=== PATIENT | male | born 1970 | race Caucasian/White ===

== ENCOUNTER 2019-05-25 11:35 | Day surgery (SDC) | payer BC ==
[~2019-05-25 11:35] MED LIST: LIDOCAINE HCL 1% MPF 30 SOL ONE; PROPOFOL 500 MG/50 ML EMU IV ONE
[2019-05-25 13:46] VITALS: O2SAT 99
[2019-05-25 13:57] VITALS: BP 142/86; PULSE 58; RESP 20; TEMP 97.4
== END 2019-05-25 14:21 | disposition home or self-care (01) ==
LOC: SURG 11:35
PROVIDERS: ATTEND Surgery
DX: Z12.11 Encounter for screening for malignant neoplasm of colon (principal); K57.32 Diverticulitis of large intestine without perforation or abscess without bleeding
CPT/HCPCS: J2001; J2704